=== PATIENT | male | born 1960 | race African-American/Black ===

== ENCOUNTER 2018-02-03 05:07 | Emergency (ER) | payer OTHER ==
[2018-02-03] MEDS ORDERED: cloNIDine 0.1 MG TAB ONE (06:14)
== END 2018-02-03 06:53 | disposition home or self-care (01) ==
LOC: ERS 05:07
DX: Z02.89 Encounter for other administrative examinations (principal); I10 Essential (primary) hypertension; M19.90 Unspecified osteoarthritis, unspecified site
CPT/HCPCS: 99283